=== PATIENT | male | born 1985 | race Two or more races ===

== ENCOUNTER 2022-04-17 01:45 | Emergency (ER) | payer SELFPAY ==
[~2022-04-17] VITALS: Ht 170.2 cm; Wt 70.3 kg
[2022-04-17 02:41] VITALS: BP 124/80
[2022-04-17 02:48] LABS: Urine WBC None Seen /hpf (0 - 3)
[2022-04-17 02:56] LABS: Urine Bacteria NONE SEEN /hpf (None Seen); Urine Blood Negative /uL (Negative); Urine Specific Gravity 1.002 (1.001-1.035)
[2022-04-17] MEDS ORDERED: IOHEXOL 350 MG/ML 100ML IJ ONE (04:02)
[2022-04-17] MEDS ORDERED: IBUP800T27 PO ×2 (08:00→08:34)
[2022-04-17] MEDS ORDERED: CEPH-509 PO ×2 (08:00→08:34)
== END 2022-04-17 08:26 | disposition home or self-care (01) ==
LOC: ER 01:45
DX: S41.112A Laceration without foreign body of left upper arm, initial encounter (principal); F17.210 Nicotine dependence, cigarettes, uncomplicated; F12.10 Cannabis abuse, uncomplicated; W26.0XXA Contact with knife, initial encounter; Y93.89 Activity, other specified; Y92.89 Other specified places as the place of occurrence of the external cause; Y99.8 Other external cause status
CPT/HCPCS: 12001; 73201; 81001; 99285; Q9967